=== PATIENT | male | born 1975 | race Caucasian/White ===

== ENCOUNTER → 2018-01-17 | Outpatient (CLI) | payer OTHER ==
[~2018-01-17] VITALS: Ht 175.3 cm; Wt 86.6 kg
[~2018-01-17] MED LIST: LIPITOR 10MG10 MG PO; MINOCIN 50M50 MG/CAP PO; ZOLOFT 25MG25 MG PO
[2018-01-17 07:29] VITALS: BP 126/78; PULSE 73
== END ==
LOC: COL.VAS 07:05
DX: R94.31 Abnormal electrocardiogram [ECG] [EKG] (principal); R07.89 Other chest pain; R06.02 Shortness of breath; R42 Dizziness and giddiness; E78.2 Mixed hyperlipidemia
CPT/HCPCS: A9502